=== PATIENT | male | born 2000 | race Caucasian/White ===

== ENCOUNTER 2023-03-03 14:04 | Inpatient (IN) | payer OTHER ==
[2023-03-03] MEDS ORDERED: methylPREDNISolone NA SUCC 125 MG/2 ML VIAL IVPUSH ONE (14:28)
[2023-03-03] MEDS ORDERED: methylPREDNISolone NA SUCC 125 MG/2 ML VIAL ONE (14:32)
[2023-03-03] MEDS ORDERED: ALBUTEROL SO4 2.5/IPRATROPIUM 0.5 INH SOL 3 ML VIAL.NEB. NEB ONE (14:34)
[2023-03-03] MEDS: ALBUTEROL SO4 2.5/IPRATROPIUM 0.5 INH SOL 3 ML VIAL.NEB. NEB SCH ×4 (14:48→20:36)
[2023-03-03 15:05] LABS: BASO % 0.5 % (0-2.0); EOS % 1.1 % (0-4.5); HEMATOCRIT 45.5 % (35.4-49); HEMOGLOBIN 15.3 GM/dL (11.7-16.9); MCH 29.5 pg (25.7-33.7); MCHC 33.5 g/dl (32.0-35.9); MEAN PLT VOLUME 9.1 fl (7.5-11.1); MONO % 4.6 % (3.8-10.2); NEUT % 83.8 % (42.8-82.8); PLATELET COUNT 259 10^3/uL (134-434); RBC 5.17 M/mm3 (4.00-5.60); RDW 14.2 % (11.9-15.9); WHITE BLOOD COUNT 11.4 K/mm3 (4.0-10.0)
[2023-03-03 15:06] LABS: VENOUS BASE EXCESS -4.4 mmol/L (-2-2); VENOUS O2 SATURATION 70.1 % (70-80); VENOUS PCO2 44.6 mmHg (38-52); VENOUS PH 7.31 (7.310-7.410)
[2023-03-03 15:18] LABS: PROTHROMBIN TIME (PATIENT) 11.6 SEC (9.7-13.0)
[2023-03-03 15:20] LABS: ACTIVATED PTT 31.5 SECONDS (25.2-36.5)
[2023-03-03 15:43] LABS: CALCIUM 9.1 mg/dL (8.5-10.1)
[2023-03-03 15:44] LABS: ALBUMIN 4.5 g/dl (3.4-5.0); BLOOD UREA NITROGEN 21.4 mg/dL (7-18); MAGNESIUM 2.3 mg/dL (1.8-2.4)
[2023-03-03 15:47] LABS: CREATININE 1.1 mg/dL (0.55-1.3)
[2023-03-03 15:49] LABS: BILIRUBIN,TOTAL 1.2 mg/dL (0.2-1); TOT PROT 7.7 g/dl (6.4-8.2)
[2023-03-03] MEDS ORDERED: MAGNESIUM 1GM/D5W - 1 GM/100 ML IVPB IVPB ONE (16:43)
[2023-03-03] MEDS ORDERED: ALBUTEROL SO4 0.083% IH SOL 2.5 MG/3 ML VIAL.NEB. NEB ONE ×2 (16:43→17:37)
[2023-03-03] MEDS: ALBUTEROL SO4 0.083% IH SOL 2.5 MG/3 ML VIAL.NEB. NEB SCH ×3 (16:47→17:39)
[2023-03-03] MEDS ORDERED: ACETAMINOPHEN 325 MG TABLET (FP) PO PRN (17:25)
[2023-03-03] MEDS ORDERED: ALBUTEROL SO4 0.042% IH SOL 1.25 MG/3 ML VIAL.NEB NEB PRN (17:26)
[2023-03-03] MEDS ORDERED: methylPREDNISolone NA SUCC 40 MG/1 ML VIAL IVPUSH SCH (21:00)
[2023-03-03] MEDS: methylPREDNISolone NA SUCC 40 MG/1 ML VIAL IVPUSH SCH (21:39)
[2023-03-03 23:13] VITALS: BMI 24.0
[2023-03-04] MEDS: methylPREDNISolone NA SUCC 40 MG/1 ML VIAL IVPUSH SCH ×4 (02:34→21:47)
[2023-03-04] MEDS: ALBUTEROL SO4 2.5/IPRATROPIUM 0.5 INH SOL 3 ML VIAL.NEB. NEB SCH ×3 (06:50→20:10)
[2023-03-04 07:26] LABS: BASO % 0.2 % (0-2.0); EOS % 0.1 % (0-4.5); HEMOGLOBIN 14.7 GM/dL (11.7-16.9); LYMPH % 8.8 % (8-40); MCH 30.8 pg (25.7-33.7); MCHC 34.9 g/dl (32.0-35.9); MEAN CELL VOLUME 88.3 fl (80-96); MEAN PLT VOLUME 9.4 fl (7.5-11.1); MONO % 1.4 % (3.8-10.2); NEUT % 89.5 % (42.8-82.8); PLATELET COUNT 232 10^3/uL (134-434); RBC 4.76 M/mm3 (4.00-5.60); RDW 14.5 % (11.9-15.9); WHITE BLOOD COUNT 9.1 K/mm3 (4.0-10.0)
[2023-03-04 07:53] LABS: CALCIUM 9.3 mg/dL (8.5-10.1)
[2023-03-04 07:54] LABS: ALBUMIN 4.4 g/dl (3.4-5.0); BLOOD UREA NITROGEN 16.6 mg/dL (7-18); MAGNESIUM 2.3 mg/dL (1.8-2.4)
[2023-03-04 07:57] LABS: CREATININE 0.9 mg/dL (0.55-1.3); PHOSPHOROUS 4.6 mg/dL (2.5-4.9)
[2023-03-04 07:58] LABS: BILIRUBIN,TOTAL 1.3 mg/dL (0.2-1); TOT PROT 7.7 g/dl (6.4-8.2)
[2023-03-04] MEDS ORDERED: CODEINE SO4 30 MG TABLET PO PRN (16:44)
[2023-03-05] MEDS: ALBUTEROL SO4 2.5/IPRATROPIUM 0.5 INH SOL 3 ML VIAL.NEB. NEB SCH ×3 (07:35→20:22)
[2023-03-05 08:18] LABS: HEMATOCRIT 41.6 % (35.4-49); HEMOGLOBIN 14.1 GM/dL (11.7-16.9); MCHC 33.9 g/dl (32.0-35.9); MEAN CELL VOLUME 88.4 fl (80-96); MEAN PLT VOLUME 9.5 fl (7.5-11.1); PLATELET COUNT 215 10^3/uL (134-434); RBC 4.71 M/mm3 (4.00-5.60); RDW 14.3 % (11.9-15.9); WHITE BLOOD COUNT 15.7 K/mm3 (4.0-10.0)
[2023-03-05 08:33] LABS: POTASSIUM 4.3 mmol/L (3.5-5.1)
[2023-03-05 08:36] LABS: BLOOD UREA NITROGEN 17.6 mg/dL (7-18); MAGNESIUM 2.2 mg/dL (1.8-2.4)
[2023-03-05 08:39] LABS: CREATININE 0.8 mg/dL (0.55-1.3); PHOSPHOROUS 4.7 mg/dL (2.5-4.9)
[2023-03-05 08:40] LABS: TOT PROT 7.2 g/dl (6.4-8.2)
[2023-03-05 08:44] LABS: BILIRUBIN,TOTAL 0.8 mg/dL (0.2-1); CALCIUM 9.2 mg/dL (8.5-10.1)
[2023-03-05] MEDS: methylPREDNISolone NA SUCC 40 MG/1 ML VIAL IVPUSH SCH ×2 (09:46→21:24)
[2023-03-05] MEDS: ENOXAPARIN NA (PORCINE) 40 MG/0.4 ML DISP.SYRIN SQ SCH (09:46)
[2023-03-06] MEDS: ALBUTEROL SO4 2.5/IPRATROPIUM 0.5 INH SOL 3 ML VIAL.NEB. NEB SCH ×2 (08:13→14:35)
[2023-03-06 08:42] LABS: INR 0.97 (0.83-1.09); PROTHROMBIN TIME (PATIENT) 11.2 SEC (9.7-13.0)
[2023-03-06 08:44] LABS: ACTIVATED PTT 26.1 SECONDS (25.2-36.5)
[2023-03-06 08:45] LABS: HEMATOCRIT 41.9 % (35.4-49); HEMOGLOBIN 14.5 GM/dL (11.7-16.9); LYMPH % 11.6 % (8-40); MCH 30.6 pg (25.7-33.7); MCHC 34.5 g/dl (32.0-35.9); MEAN CELL VOLUME 88.5 fl (80-96); MEAN PLT VOLUME 9.4 fl (7.5-11.1); MONO % 5.9 % (3.8-10.2); NEUT % 82.5 % (42.8-82.8); PLATELET COUNT 235 10^3/uL (134-434); RBC 4.74 M/mm3 (4.00-5.60); RDW 14.5 % (11.9-15.9); WHITE BLOOD COUNT 10.9 K/mm3 (4.0-10.0)
[2023-03-06 08:49] LABS: POTASSIUM 4.3 mmol/L (3.5-5.1)
[2023-03-06 08:52] LABS: CALCIUM 9.2 mg/dL (8.5-10.1)
[2023-03-06 08:53] LABS: ALBUMIN 3.8 g/dl (3.4-5.0); BLOOD UREA NITROGEN 16.6 mg/dL (7-18); MAGNESIUM 2.1 mg/dL (1.8-2.4)
[2023-03-06 08:56] LABS: CREATININE 0.8 mg/dL (0.55-1.3); PHOSPHOROUS 4.5 mg/dL (2.5-4.9)
[2023-03-06 08:57] LABS: BILIRUBIN,TOTAL 0.7 mg/dL (0.2-1)
[2023-03-06] MEDS: ENOXAPARIN NA (PORCINE) 40 MG/0.4 ML DISP.SYRIN SQ SCH (10:08)
[2023-03-06] MEDS: methylPREDNISolone NA SUCC 40 MG/1 ML VIAL IVPUSH SCH (10:08)
[2023-03-06 14:54] VITALS: RESP 18
[2023-03-06 18:09] VITALS: BP 130/58; PULSE 73; TEMP 98.7
== END 2023-03-06 19:01 | disposition home or self-care (01) | DRG 143 ==
LOC: JER 14:04 → JERBED 16:32 → INTOOBSV 16:32 → JERBED 16:32 → UNDOADMOB 16:32 → JERBED 17:25 → OBSVTOIN 17:25 → INTOOBSV 17:25 → UNDOADMOB 17:25 → J4W 18:50 → OBSVTOIN 03-05 18:18
PROVIDERS: ADMIT Internal Medicine; ATTEND Internal Medicine
DX: J98.2 Interstitial emphysema (principal); J45.901 Unspecified asthma with (acute) exacerbation; F17.210 Nicotine dependence, cigarettes, uncomplicated; R01.1 Cardiac murmur, unspecified
CPT/HCPCS: 0241U-QW; 36415; 71045-TC-FY; 71250-TC; 80053; 82803; 83735; 84100; 85025; 85027; 85610; 85730; 93005; 93010; 93306-TC; 94640; 99285-25; G0378